=== PATIENT | male | born 1965 | race African-American/Black ===

== ENCOUNTER 2021-05-13 20:21 | Inpatient (IN) | payer OTHER ==
[~2021-05-13] VITALS: Ht 170.2 cm; Wt 59.0 kg
[2021-05-13 21:21] LABS: BASOPHILS % 0.4 % (0.0-2.0); EOSINOPHILS % 2.9 % (0.0-5.0); HEMATOCRIT. 33.4 % (42.0-52.0); HEMOGLOBIN. 11.7 g/dL (14.0-18.0); LYMPHOCYTES % 23.3 % (20.0-50.0); MEAN CORPUSCULAR VOLUME 88.3 fL (80.0-94.0); MEAN PLATELET VOLUME 7.7 fl (7.4-10.4); MONOCYTES % 7.2 % (2.0-8.0); NEUTROPHILS % 66.2 % (40.0-76.0); PLATELET 240 x1000/uL (130-400); RED BLOOD CELL COUNT 3.78 mill/uL (4.7-6.1); RED CELL DISTRIBUTION WIDTH 13.3 % (11.6-14.6)
[2021-05-13 21:27] LABS: INR 1.1; PROTHROMBIN TIME 11.4 sec (9.6-11.0)
[2021-05-13 21:28] LABS: CHLORIDE 109 mEq/L (98-107)
[2021-05-13 21:32] LABS: ETHANOL BLOOD < 10 mg/dL
[2021-05-13 21:35] LABS: LDL CHOLESTEROL 70 mg/dL (5-100)
[2021-05-13] MEDS ORDERED: CONTAINER EMPTY IV NR (21:45)
[2021-05-13] MEDS ORDERED: *NO ASPIRIN X 24 HOURS XX SCH (21:45)
[2021-05-13] MEDS ORDERED: ALTEPLASE 50MG/VIAL IV NR (21:45)
[2021-05-13] MEDS ORDERED: ALTEPLASE IV NR (21:45)
[2021-05-13] MEDS ORDERED: IOHEXOL-350 100 ML BOTTLE ONE (23:17)
[2021-05-14] MEDS ORDERED: ONDANSETRON HCL 4MG/2ML INJ IV PRN (09:45)
[2021-05-14] MEDS ORDERED: CLONIDINE 0.1MG TABLET PO PRN (09:45)
[2021-05-14] MEDS ORDERED: ACETAMINOPHEN 325MG TABLET PO PRN (09:45)
[2021-05-14 10:31] LABS: CLARITY URINE CLEAR (CLEAR); COLOR URINE YELLOW (YELLOW); KETONES URINE NEGATIVE (NEGATIVE); LEUKOCYTE ESTERASE URINE NEGATIVE (NEGATIVE); NITRITE URINE NEGATIVE (NEGATIVE); OCCULT BLOOD URINE NEGATIVE (NEGATIVE); PH URINE 6.5 (4.5-8.0); PROTEIN URINE NEGATIVE (NEGATIVE); UROBILINOGEN URINE 0.2 E.U./dL (0.2-1.0)
[2021-05-14 10:39] LABS: SPECIFIC GRAVITY URINE 1.069 (1.005-1.030)
[2021-05-14] MEDS: AMLODIPINE 5MG TABLET PO SCH (10:47)
[2021-05-14 10:50] LABS: *AMPHETAMINES SCREEN URINE NEGATIVE (NEGATIVE); *BARBITURATES SCREEN URINE NEGATIVE (NEGATIVE); *BENZODIAZEPINES SCREEN URINE NEGATIVE (NEGATIVE); CANNABINOID URINE SCREEN NEGATIVE (NEGATIVE); PHENCYCLIDINE URINE SCREEN NEGATIVE (NEGATIVE)
[2021-05-14 10:51] LABS: *COCAINE SCREEN URINE PRESUMTIVE POSITIVE (NEGATIVE); METHADONE URINE SCREEN NEGATIVE (NEGATIVE); OPIATES URINE SCREEN NEGATIVE (NEGATIVE)
[2021-05-14 12:19] LABS: EOSINOPHILS % 3.1 % (0.0-5.0); HEMATOCRIT. 37.7 % (42.0-52.0); HEMOGLOBIN. 13.1 g/dL (14.0-18.0); LYMPHOCYTES % 28.8 % (20.0-50.0); MEAN CORPUSCULAR HEMOGLOBIN 30.2 pg (28.0-32.0); MEAN CORPUSCULAR VOLUME 86.7 fL (80.0-94.0); MEAN PLATELET VOLUME 7.4 fl (7.4-10.4); NEUTROPHILS % 59.1 % (40.0-76.0); PLATELET 259 x1000/uL (130-400); RED BLOOD CELL COUNT 4.34 mill/uL (4.7-6.1); RED CELL DISTRIBUTION WIDTH 13.4 % (11.6-14.6)
[2021-05-14 12:30] LABS: PARTIAL THROMBOPLASTIN TIME 28.2 sec (23.4-31.0); PROTHROMBIN TIME 10.8 sec (9.6-11.0)
[2021-05-14 12:36] LABS: CHLORIDE 110 mEq/L (98-107)
[2021-05-14 12:43] LABS: LDL CHOLESTEROL 84 mg/dL (5-100)
[2021-05-14 12:44] LABS: HDL CHOLESTEROL 60 mg/dL (40-59)
[2021-05-14 16:14] LABS: CREATINE KINASE 178 IU/L (39-308)
[2021-05-14 16:15] LABS: CREATINE KINASE MB FRACTION < 1.0 ng/mL (0.5-3.6)
[2021-05-14 23:43] LABS: CREATINE KINASE 167 IU/L (39-308)
[2021-05-14 23:44] LABS: CREATINE KINASE MB FRACTION < 1.0 ng/mL (0.5-3.6)
[2021-05-15] MEDS: ATORVASTATIN CALCIUM 40MG TABLET PO SCH ×2 (10:21→20:45)
[2021-05-15] MEDS: AMLODIPINE 5MG TABLET PO SCH (10:21)
[2021-05-15 12:10] VITALS: BP 127/86
[2021-05-15 12:30] VITALS: BP 127/86
[2021-05-15 16:00] VITALS: BP 125/80
[2021-05-15 16:09] LABS: CHLORIDE 107 mEq/L (98-107)
[2021-05-15 16:12] LABS: BASOPHILS % 0.3 % (0.0-2.0); EOSINOPHILS % 2.5 % (0.0-5.0); HEMATOCRIT. 36.2 % (42.0-52.0); HEMOGLOBIN. 12.9 g/dL (14.0-18.0); LYMPHOCYTES % 20.9 % (20.0-50.0); MEAN CORPUSCULAR HEMOGLOBIN 30.8 pg (28.0-32.0); MEAN CORPUSCULAR VOLUME 86.1 fL (80.0-94.0); MONOCYTES % 7.1 % (2.0-8.0); NEUTROPHILS % 69.2 % (40.0-76.0); PLATELET 282 x1000/uL (130-400); RED BLOOD CELL COUNT 4.21 mill/uL (4.7-6.1); RED CELL DISTRIBUTION WIDTH 13.3 % (11.6-14.6)
[2021-05-15 16:19] LABS: LDL CHOLESTEROL 95 mg/dL (5-100)
[2021-05-15 16:21] LABS: HDL CHOLESTEROL 57 mg/dL (40-59)
[2021-05-15] MEDS: ENOXAPARIN 40MG/0.4ML SYR SUBCUT SCH (16:49)
[2021-05-15 20:00] VITALS: BP 111/73
[2021-05-15] MEDS: DEXT 5%/0.9% NACL 1,000 ML IV SCH (23:22)
[2021-05-16] VITALS: BP 125/71
[2021-05-16 04:00] VITALS: BP 112/77
[2021-05-16] MEDS: AMLODIPINE 5MG TABLET PO SCH (09:00)
[2021-05-16] MEDS: ASPIRIN 81MG EC TABLET PO SCH (09:32)
[2021-05-16] MEDS: CLOPIDOGREL 75MG TABLET PO SCH (09:34)
[2021-05-16] MEDS: ENOXAPARIN 40MG/0.4ML SYR SUBCUT SCH (15:39)
[2021-05-16] MEDS: DEXT 5%/0.9% NACL 1,000 ML IV SCH (15:39)
[2021-05-16 16:00] VITALS: BP 105/67
[2021-05-16 18:00] VITALS: BP 116/72
[2021-05-16 20:00] VITALS: BP 108/72
[2021-05-16] MEDS: ATORVASTATIN CALCIUM 40MG TABLET PO SCH (20:43)
[2021-05-17] VITALS: BP 120/81
[2021-05-17 04:00] VITALS: BP 136/93
[2021-05-17] MEDS: DEXT 5%/0.9% NACL 1,000 ML IV SCH ×2 (05:39→16:02)
[2021-05-17 08:00] VITALS: BP 129/85
[2021-05-17] MEDS: CLOPIDOGREL 75MG TABLET PO SCH (09:06)
[2021-05-17] MEDS: ASPIRIN 81MG EC TABLET PO SCH (09:06)
[2021-05-17] MEDS: AMLODIPINE 5MG TABLET PO SCH (11:48)
[2021-05-17 12:00] VITALS: BP 122/80
[2021-05-17] MEDS: ENOXAPARIN 40MG/0.4ML SYR SUBCUT SCH (15:53)
[2021-05-17 16:00] VITALS: BP 127/72
[2021-05-17] MEDS ORDERED: ACETAMINOPHEN 325MG TABLET PO PRN (17:45)
[2021-05-17 20:00] VITALS: BP 130/80
[2021-05-17] MEDS: ATORVASTATIN CALCIUM 40MG TABLET PO SCH (21:30)
[2021-05-18] VITALS: BP 155/96
[2021-05-18 04:00] VITALS: BP 176/100
[2021-05-18] MEDS: DEXT 5%/0.9% NACL 1,000 ML IV SCH (05:13)
[2021-05-18 08:00] VITALS: BP 119/80
[2021-05-18] MEDS: CLOPIDOGREL 75MG TABLET PO SCH (08:54)
[2021-05-18] MEDS: AMLODIPINE 5MG TABLET PO SCH (08:54)
[2021-05-18] MEDS: ASPIRIN 81MG EC TABLET PO SCH (08:54)
[2021-05-18 12:06] VITALS: BP 119/80
[2021-05-18] MEDS ORDERED: ENOXAPARIN 30MG/0.3ML SYR SUBCUT SCH (15:00)
== END 2021-05-18 13:30 | DRG 45 ==
LOC: ER 20:21 → MICUSO 23:18 → 8WST 05-15 11:59 → CANBEDREQ 05-15 18:00
PROVIDERS: ADMIT Internal Medicine; ATTEND Internal Medicine
DX: I63.9 Cerebral infarction, unspecified (principal); E44.1 Mild protein-calorie malnutrition; G81.91 Hemiplegia, unspecified affecting right dominant side; F14.10 Cocaine abuse, uncomplicated; J44.9 Chronic obstructive pulmonary disease, unspecified; I10 Essential (primary) hypertension; F17.210 Nicotine dependence, cigarettes, uncomplicated; R29.810 Facial weakness; R29.706 NIHSS score 6; R00.0 Tachycardia, unspecified; I25.2 Old myocardial infarction; Z86.73 Personal history of transient ischemic attack (TIA), and cerebral infarction without residual deficits
CPT/HCPCS: 36415; 70496; 70498; 70551; 71045; 73502; 80048; 80053; 80061; 80305; 80320; 81003; 82550; 82553; 82962; 83036; 83721; 83735; 84443; 84484; 85025; 92523; 92610; 93005; 93306; 93970; 95816; 97112; 97162; 97166; 97530; 99291; J1650; J2997; J7042; J7060; Q9967; G0480

== ENCOUNTER 2024-02-26 14:30 | Emergency (ER) | payer MEDICAID, OTHER ==
[~2024-02-26] VITALS: Ht 170.2 cm; Wt 73.0 kg
[2024-02-26 14:41] VITALS: O2SAT 99
[2024-02-26] MEDS: SODIUM CHLORIDE 0.9% 1,000 ML IV ONE (16:12)
[2024-02-26 16:18] LABS: CLARITY URINE CLEAR (CLEAR); COLOR URINE YELLOW (YELLOW); GLUCOSE URINE NEGATIVE (NEGATIVE); KETONES URINE NEGATIVE (NEGATIVE); LEUKOCYTE ESTERASE URINE NEGATIVE (NEGATIVE); NITRITE URINE NEGATIVE (NEGATIVE); OCCULT BLOOD URINE NEGATIVE (NEGATIVE); PH URINE 6.5 (4.5-8.0); PROTEIN URINE NEGATIVE (NEGATIVE)
[2024-02-26 16:41] LABS: BASOPHILS % 0.6 % (0.0-2.0); EOSINOPHILS % 3.8 % (0.0-5.0); HEMATOCRIT. 42.3 % (42.0-52.0); HEMOGLOBIN. 14.6 g/dL (14.0-18.0); MEAN CORPUSCULAR HEMOGLOBIN 30.4 pg (28.0-32.0); MEAN CORPUSCULAR HGB CONC 34.6 g/dL (31.0-37.0); MEAN CORPUSCULAR VOLUME 87.8 fL (80.0-94.0); MEAN PLATELET VOLUME 8.5 fl (7.4-10.4); MONOCYTES % 6.5 % (2.0-8.0); NEUTROPHILS % 68.1 % (40.0-76.0); PLATELET 196 x1000/uL (130-400); RED BLOOD CELL COUNT 4.82 mill/uL (4.7-6.1); RED CELL DISTRIBUTION WIDTH 13.9 % (11.6-14.6); WHITE BLOOD COUNT 5.3 x1000/uL (4.5-11.0)
[2024-02-26 16:47] LABS: CARBON DIOXIDE 26 mEq/L (21-32); CHLORIDE 104 mEq/L (98-107); POTASSIUM 3.7 mEq/L (3.5-5.1); SODIUM 138 mEq/L (136-145)
[2024-02-26 16:48] LABS: CALCIUM 9.8 mg/dL (8.7-10.4)
[2024-02-26 16:52] LABS: CREATININE 1.1 mg/dL (0.6-1.3)
[2024-02-26 16:53] LABS: GLUCOSE 84 mg/dL (70-105); TROPONIN I HIGH SENSITIVITY 12 ng/L (3.0-53); UREA NITROGEN BLOOD 11 mg/dL (9-23)
[2024-02-26 16:54] LABS: ALANINE AMINOTRANSFERASE 13 IU/L (10-49); ALBUMIN 4.6 g/dL (3.2-4.8); ASPARTATE AMINOTRANSFERASE 22 IU/L (<34)
[2024-02-26 16:55] LABS: BILIRUBIN DIRECT 0.2 mg/dL (<=3.0); BILIRUBIN TOTAL 0.6 mg/dL (0.1-1.0); PROTEIN TOTAL 8.1 g/dL (6.0-8.3)
[2024-02-26 17:06] LABS: ETHANOL BLOOD < 10 mg/dL (<10)
[2024-02-26 18:05] VITALS: BP 125/75; PULSE 90; RESP 18; TEMP 98.7
== END 2024-02-26 18:36 | disposition home or self-care (01) ==
LOC: ER 14:30
DX: R55 Syncope and collapse (principal); I10 Essential (primary) hypertension; Z86.73 Personal history of transient ischemic attack (TIA), and cerebral infarction without residual deficits
CPT/HCPCS: 80076; 80048; 81003; 80320; 83880; 85025; 84484; 36415; 71045; 70450; 93005; 96360; 99285; J7030; G0480

== ENCOUNTER 2025-05-03 21:01 | Emergency (ER) | payer MEDICAID ==
[~2025-05-03] VITALS: Ht 165.1 cm; Wt 61.0 kg
[2025-05-03 21:04] VITALS: O2SAT 99
[2025-05-03 23:02] LABS: BASOPHILS % 0.9 % (0.0-2.0); EOSINOPHILS % 2.1 % (0.0-5.0); HEMATOCRIT. 40.1 % (42.0-52.0); HEMOGLOBIN. 13.6 g/dL (14.0-18.0); LYMPHOCYTES % 30.5 % (20.0-50.0); MEAN PLATELET VOLUME 7.7 fl (7.4-10.4); MONOCYTES % 8.2 % (2.0-8.0); NEUTROPHILS % 58.3 % (40.0-76.0); PLATELET 228 x1000/uL (130-400); RED BLOOD CELL COUNT 4.35 mill/uL (4.7-6.1); RED CELL DISTRIBUTION WIDTH 15.4 % (11.6-14.6)
[2025-05-03 23:13] LABS: INR 1.0
[2025-05-03 23:16] LABS: CREATININE 0.9 mg/dL (0.6-1.3)
[2025-05-03 23:17] LABS: TROPONIN I HIGH SENSITIVITY 16 ng/L (3.0-53); UREA NITROGEN BLOOD 7 mg/dL (9-23)
[2025-05-03 23:18] LABS: ASPARTATE AMINOTRANSFERASE 15 IU/L (<34); BILIRUBIN DIRECT 0.1 mg/dL (<=3.0)
[2025-05-03 23:19] LABS: BILIRUBIN TOTAL 0.4 mg/dL (0.1-1.0); PROTEIN TOTAL 6.8 g/dL (6.0-8.3)
[2025-05-04] MEDS: POTASSIUM CHLORIDE 20MEQ TABLET SR PO ONE (01:02)
[2025-05-04 02:48] LABS: CLARITY URINE CLEAR (CLEAR); COLOR URINE YELLOW (YELLOW); GLUCOSE URINE NEGATIVE (NEGATIVE); KETONES URINE NEGATIVE (NEGATIVE); LEUKOCYTE ESTERASE URINE NEGATIVE (NEGATIVE); NITRITE URINE NEGATIVE (NEGATIVE); OCCULT BLOOD URINE NEGATIVE (NEGATIVE); PH URINE 6.5 (4.5-8.0); PROTEIN URINE NEGATIVE (NEGATIVE); SPECIFIC GRAVITY URINE 1.018 (1.005-1.030); UROBILINOGEN URINE 1.0 E.U./dL (0.2-1.0)
[2025-05-04 03:50] LABS: *AMPHETAMINES SCREEN URINE NEGATIVE (NEGATIVE); *BARBITURATES SCREEN URINE NEGATIVE (NEGATIVE); *BENZODIAZEPINES SCREEN URINE NEGATIVE (NEGATIVE); *COCAINE SCREEN URINE PRESUMPTIVE POSITIVE (NEGATIVE); METHADONE URINE SCREEN NEGATIVE (NEGATIVE); OPIATES URINE SCREEN NEGATIVE (NEGATIVE)
[2025-05-04 03:51] VITALS: BP 140/94; PULSE 82; RESP 21; TEMP 36.9; O2SAT 100
[2025-05-04 03:51] LABS: CANNABINOID URINE SCREEN NEGATIVE (NEGATIVE); ECSTASY MDMA SCREEN URINE NEGATIVE (NEGATIVE); PHENCYCLIDINE URINE SCREEN NEGATIVE (NEGATIVE)
== END 2025-05-04 04:12 | disposition home or self-care (01) ==
LOC: ER 21:01
DX: F10.129 Alcohol abuse with intoxication, unspecified (principal); I10 Essential (primary) hypertension; I69.351 Hemiplegia and hemiparesis following cerebral infarction affecting right dominant side; Z79.899 Other long term (current) drug therapy; Y90.5 Blood alcohol level of 100-119 mg/100 ml
CPT/HCPCS: 36415; 71045; 80048; 80076; 80305; 80320; 81003; 83880; 84484; 85025; 93005; 99285; G0480